=== PATIENT | female | born 1940 | race Caucasian/White ===

== ENCOUNTER → 2023-11-07 | Outpatient (REF) ==
[2023-11-07 12:23] LABS: HEMATOCRIT 41.1 % (36.0-47.0); HEMOGLOBIN 13.5 g/dl (12.0-15.5); MEAN CORPUSCULAR HEMOGLOBIN 29.5 pg (27.0-33.0); MEAN CORPUSCULAR HGB CONC 32.8 g/dl (32.0-36.5); MEAN CORPUSCULAR VOLUME 89.7 fl (80.0-96.0); PLATELET COUNT, AUTOMATED 286 10^3/uL (150-450); RED BLOOD COUNT 4.58 10^6/uL (4.00-5.40); WHITE BLOOD COUNT 6.7 10^3/uL (4.0-10.0)
[2023-11-07 12:56] LABS: BLOOD UREA NITROGEN 6 MG/DL (9-23); CALCIUM LEVEL 8.8 MG/DL (8.3-10.6); CARBON DIOXIDE LEVEL 28 MMOL/L (20-31); CHLORIDE LEVEL 106 MMOL/L (98-107); CREATININE FOR GFR 0.64 MG/DL (0.55-1.30); GLOMERULAR FILTRATION RATE > 60.0 (>32); GLUCOSE, FASTING 116 MG/DL (74-106); POTASSIUM SERUM 3.4 MMOL/L (3.5-5.1); SODIUM LEVEL 140 MMOL/L (136-145)
[2023-11-07 14:57] LABS: BASO % 0.4 % (0.0-1.0); EOS % 0.6 % (0.0-3.0); LYMPH % 14.3 % (24.0-44.0); MONO # 0.5 10^3/uL (0.0-0.8); MONO % 6.5 % (2.0-8.0); NEUTROPHILS # 5.5 10^3/uL (1.5-8.5); NEUTROPHILS % 78.1 % (36.0-66.0)
== END ==
PROVIDERS: ATTEND Physician Assistant
DX: I48.91 Unspecified atrial fibrillation (principal)

== ENCOUNTER → 2023-11-08 | Outpatient (CLI) | payer MEDICAID, MEDICARE | LOC: M RAD 08:29 | PROVIDERS: ATTEND Physician Assistant | DX: Z86.79 Personal history of other diseases of the circulatory system (principal) ==

== ENCOUNTER → 2023-11-10 | Outpatient (CLI) | payer MEDICARE ==
[~2023-11-10] MED LIST: PROHANCE 279.3MG/ML 15ML VIAL As Ordered ONE
== END ==
LOC: M RAD 14:24
PROVIDERS: ATTEND Physician Assistant
DX: I62.00 Nontraumatic subdural hemorrhage, unspecified (principal); I63.9 Cerebral infarction, unspecified; R90.82 White matter disease, unspecified
CPT/HCPCS: 70553; A9576

== ENCOUNTER → 2023-11-14 | Outpatient (REF) | PROVIDERS: ATTEND Physician Assistant | DX: I48.91 Unspecified atrial fibrillation (principal); Z53.8 Procedure and treatment not carried out for other reasons ==

== ENCOUNTER → 2023-11-16 | Outpatient (REF) | PROVIDERS: ATTEND Physician Assistant | DX: I48.91 Unspecified atrial fibrillation (principal); Z53.8 Procedure and treatment not carried out for other reasons ==

== ENCOUNTER → 2023-11-16 | Outpatient (REF) | PROVIDERS: ATTEND Internal Medicine | DX: I48.91 Unspecified atrial fibrillation (principal); Z53.8 Procedure and treatment not carried out for other reasons ==

== ENCOUNTER → 2023-11-16 | Outpatient (REF) ==
[2023-11-16 11:04] LABS: HEMATOCRIT 45.7 % (36.0-47.0); HEMOGLOBIN 14.8 g/dl (12.0-15.5); MEAN CORPUSCULAR HEMOGLOBIN 29.4 pg (27.0-33.0); MEAN CORPUSCULAR HGB CONC 32.4 g/dl (32.0-36.5); MEAN CORPUSCULAR VOLUME 90.9 fl (80.0-96.0); PLATELET COUNT, AUTOMATED 244 10^3/uL (150-450); RED BLOOD COUNT 5.03 10^6/uL (4.00-5.40); WHITE BLOOD COUNT 5.9 10^3/uL (4.0-10.0)
[2023-11-16 11:20] LABS: BLOOD UREA NITROGEN 8 MG/DL (9-23); CALCIUM LEVEL 9.4 MG/DL (8.3-10.6); CARBON DIOXIDE LEVEL 30 MMOL/L (20-31); CHLORIDE LEVEL 106 MMOL/L (98-107); CREATININE FOR GFR 0.76 MG/DL (0.55-1.30); GLOMERULAR FILTRATION RATE > 60.0 (>32); GLUCOSE, FASTING 138 MG/DL (74-106); POTASSIUM SERUM 3.9 MMOL/L (3.5-5.1); SODIUM LEVEL 145 MMOL/L (136-145)
== END ==
PROVIDERS: ATTEND Physician Assistant
DX: I63.9 Cerebral infarction, unspecified (principal)

== ENCOUNTER → 2023-11-22 | Outpatient (REF) ==
[2023-11-22 11:20] LABS: HEMOGLOBIN 14.7 g/dl (12.0-15.5); MEAN CORPUSCULAR HEMOGLOBIN 29.2 pg (27.0-33.0); MEAN CORPUSCULAR VOLUME 91.5 fl (80.0-96.0); PLATELET COUNT, AUTOMATED 184 10^3/uL (150-450); RED BLOOD COUNT 5.03 10^6/uL (4.00-5.40); WHITE BLOOD COUNT 3.4 10^3/uL (4.0-10.0)
[2023-11-22 11:42] LABS: BLOOD UREA NITROGEN 7 MG/DL (9-23); CALCIUM LEVEL 8.5 MG/DL (8.3-10.6); CARBON DIOXIDE LEVEL 30 MMOL/L (20-31); CHLORIDE LEVEL 107 MMOL/L (98-107); CREATININE FOR GFR 0.84 MG/DL (0.55-1.30); GLOMERULAR FILTRATION RATE > 60.0 (>32); GLUCOSE, FASTING 115 MG/DL (74-106); POTASSIUM SERUM 3.7 MMOL/L (3.5-5.1); SODIUM LEVEL 144 MMOL/L (136-145)
== END ==
PROVIDERS: ATTEND Physician Assistant
DX: U07.1 COVID-19 (principal)

== ENCOUNTER → 2023-11-23 | Outpatient (REF) ==
[2023-11-23 14:20] LABS: HEMATOCRIT 45.5 % (36.0-47.0); HEMOGLOBIN 14.9 g/dl (12.0-15.5); MEAN CORPUSCULAR HEMOGLOBIN 29.2 pg (27.0-33.0); MEAN CORPUSCULAR HGB CONC 32.7 g/dl (32.0-36.5); MEAN CORPUSCULAR VOLUME 89.2 fl (80.0-96.0); PLATELET COUNT, AUTOMATED 188 10^3/uL (150-450); WHITE BLOOD COUNT 3.9 10^3/uL (4.0-10.0)
[2023-11-23 14:51] LABS: BLOOD UREA NITROGEN 6 MG/DL (9-23); CALCIUM LEVEL 8.3 MG/DL (8.3-10.6); CARBON DIOXIDE LEVEL 27 MMOL/L (20-31); CHLORIDE LEVEL 108 MMOL/L (98-107); CREATININE FOR GFR 0.72 MG/DL (0.55-1.30); GLOMERULAR FILTRATION RATE > 60.0 (>32); GLUCOSE, FASTING 171 MG/DL (74-106); POTASSIUM SERUM 3.6 MMOL/L (3.5-5.1); SODIUM LEVEL 145 MMOL/L (136-145)
== END ==
PROVIDERS: ATTEND Physician Assistant
DX: I63.9 Cerebral infarction, unspecified (principal)